=== PATIENT | female | born 1965 | race Caucasian/White ===

== ENCOUNTER → 2018-05-09 | Outpatient (REF) | payer OTHER | LOC: M LAB REF 13:50 | DX: E04.1 Nontoxic single thyroid nodule (principal) ==

== ENCOUNTER → 2019-06-08 | Outpatient (CLI) | payer OTHER ==
[~2019-06-08] MED LIST: AMLO10TA5 PO; CELE40TA PO; LISI-538 PO; SIMV40TA20 PO; TRAM50TA2 PO
--- NOTE | 2019-06-11 08:29 | SLEEPCENT ---
DATE OF STUDY: 06/08/2019 ORDERED BY: Brandon Ibarra Nocturnal polysomnography was performed for evaluation of sleep physiology in this patient with a history of excessive somnolence, snoring, morning headaches and nonrestorative sleep. The patient has comorbidity of hypertension. 7 hours and 33 minutes of data were reviewed. There were 365 minutes of sleep identified. Sleep latency was mildly prolonged at 17.5 minutes. Rapid eye movement (REM) latency was also mildly prolonged at 138.5 minutes. Sleep architecture was fair with 3 REM cycles. Overall sleep efficiency was 81.3%. The electrocardiogram showed a sinus rhythm with an average heart rate of 70 beats per minute. Electroencephalogram (EEG) showed mild alpha intrusion in non-REM stages, possibly medication effect. There were no focal events identified. There were 49 respiratory events identified of 10 seconds in duration or greater for an apnea-hypopnea index of 8.1. The events were primarily obstructive, not exclusive to sleep stage nor body posture. Arousals from respiratory events occurred 1.5 times per hour and oxygen desaturations were seen into the 80s. There was snoring noted and remaining measures of sleep physiology were normal. IMPRESSION: Obstructive sleep apnea syndrome (G47.33). Apnea-hypopnea index 8.1. RECOMMENDATION: The patient should be encouraged to return to the sleep disorder center for pressure therapy. In the interim, alcohol and sedative avoidance should be practiced and caution exercised during the operation of motor vehicles.
== END ==
LOC: M SLEEP 19:24
PROVIDERS: ATTEND Physician Assistant
DX: G47.33 Obstructive sleep apnea (adult) (pediatric) (principal)

== ENCOUNTER → 2019-07-28 | Outpatient (CLI) | payer OTHER ==
--- NOTE | 2019-07-30 16:29 | SLEEPCENT ---
DATE OF PROCEDURE: 07/28/2019 ORDERED BY: Nash Ibarra PA-C Nocturnal polysomnography was performed for the titration of pressure therapy in this patient with obstructive sleep apnea syndrome. Apnea-hypopnea index 8.1. For testing a ResMed AirFit F30 full face mask of medium size was used, 4 cm of water pressure were applied to the circuit and the lights were extinguished. 8 hours and 32 minutes of data were reviewed. There were 341.5 minutes of sleep identified. Sleep latency was prolonged at 73 minutes. Rapid eye movement (REM) latency was prolonged at 165 minutes. Sleep architecture was fair with one period of wake around 2:00 to 3:00 a.m. resulting in reduced sleep efficiency of 67.4%. There were, however, three REM cycles noted. Overall sleep efficiency 67.4%. The patient's electrocardiogram showed a sinus rhythm with an average heart rate of 62 beats per minute. EEG showed normal waveforms for awake and sleep. Respiratory events were reasonably palliated with continuous positive airway pressure (CPAP) at a pressure of +10 and remaining measures of sleep physiology were normal. IMPRESSION: Obstructive sleep apnea syndrome (G47.33). RECOMMENDATIONS: Nightly use of pressure therapy 10 cm of water.
== END ==
LOC: M SLEEP 19:18
PROVIDERS: ATTEND Physician Assistant
DX: G47.33 Obstructive sleep apnea (adult) (pediatric) (principal)